=== PATIENT | female | born 1945 | race Caucasian/White ===

== ENCOUNTER 2017-05-12 08:09 | Emergency (ER) | payer MEDICARE, OTHER ==
[2017-05-12] MEDS ORDERED: traMADol HCl 50 MG TAB ONE (09:02)
--- NOTE | 2017-05-12 18:41 | RAD ---
LEFT RIBS WITH PA CHEST: Date: 05/12/17 No gross rib fractures were seen; however, there were some small irregularities of the left 8th, 9th , and 10th ribs posteriorly that could be subtle fractures. Subtle injuries would be missed in this patient easily. There is no pneumothorax, pleural effusion, or focal pulmonary infiltrate. The lungs are clear. The mediastinum shows no widening or shift. The trachea is midline. Clips are noted in t he left breast/axillary region from a prior procedure. IMPRESSION: No definite acute findings, though some suspicion of minor irregularities of left 8th-10th ribs. Cor relate with clinical exam. POS: HOME
== END 2017-05-12 09:15 | disposition home or self-care (01) ==
LOC: BURERS 08:09
DX: S20.212A Contusion of left front wall of thorax, initial encounter (principal); I10 Essential (primary) hypertension; Z86.711 Personal history of pulmonary embolism; Z86.718 Personal history of other venous thrombosis and embolism; W01.198A Fall on same level from slipping, tripping and stumbling with subsequent striking against other object, initial encounter
CPT/HCPCS: 94799